=== PATIENT | female | born 1970 | race Hispanic/Latino ===

== ENCOUNTER 2021-07-29 21:03 | Emergency (ER) | payer BC ==
[~2021-07-29] VITALS: Ht 162.6 cm; Wt 70.3 kg
[2021-07-29] MEDS ORDERED: ONDANSETRON HCL 4 MG ORAL DISINTEGRATING TAB ONE (22:31)
[2021-07-29] MEDS ORDERED: CASIRIVIMAB/IMDEVIMAB 10 ML in SODIUM CHLORIDE 0.9% 100 ML IV ONE (23:45)
[2021-07-29] MEDS ORDERED: PROMETHAZINE HCL (IM) 25 MG/ML VIAL IM ONE ×2 (23:45→23:46)
== END 2021-07-30 01:46 | disposition home or self-care (01) ==
LOC: ER 22:30
DX: R05 Cough (principal); U07.1 COVID-19; R11.2 Nausea with vomiting, unspecified; E11.9 Type 2 diabetes mellitus without complications; H40.9 Unspecified glaucoma
CPT/HCPCS: 71045; 99283; J2550; Q0162; U0002